=== PATIENT | female | born 1940 | race Two or more races ===

== ENCOUNTER 2020-08-08 06:14 | Day surgery (SDC) | payer MEDICARE, OTHER ==
--- NOTE | 2020-08-04 18:18 | Pre-Procedure Note/Attestation ---
Pre-Procedure Note/Attestation Complete Prior to Procedure Planned Procedure: left Procedure Narrative: Cataract extraction with intraocular lens implant left eye Indications for Procedure Pre-Operative Diagnosis: Nuclear sclerotic cataract left eye Attestation I attest that I discussed the nature of the procedure; its benefits; risks and complications; and alternatives (and the risks and benefits of such alternatives), prior to the procedure, with the patient (or the patient's legal graphic art sales representative). I attest that, if there was a reasonable possibility of needing a blood transfusion, the patient (or the patient's legal graphic art sales representative) was given the [facility] standardized written summary, pursuant to the Rodrigo Mara Blood Safety Act ([place] Health and Safety Code # 1645, as amended). I attest that I re-evaluated the patient just prior to the surgery and that there has been no change in the patient's H&P, except as documented below: Bon Morataya MD Aug 04, 2020 18:18
--- NOTE | 2020-08-04 18:19 | Opthalmology H&P ---
Ophthalmology H&P H&P Chief Complaint: decreased vision in left eye HPI Vision Affects Ability to: read, focus/use eyes together, manage personal affairs HPI Narrative blurry vision Exam Visual Acuity: OD 20/30 OS 20/100 Tension: OD 15 OS 14 Eye Exam: normal OU: external exam, palpebral fissure-width, marginal reflex distance, levator function, corneas, anterior chambers, fundus exam; findings: lens - IOL-OD, NS Cataract OS Assessment/Plan Treatment Plan: cataract extraction w/ lens implant Goals of Treatment: improvement of vision, enhance quality of life Attestation Attestation The risks and benefits of the surgery as well as alternative procedures were explained to the patient in detail. Bon Morataya MD Aug 04, 2020 18:19
[2020-08-05 09:06] LABS: BASOPHILS % (AUTO) 0.7 % (0.0-2.0); EOSINOPHILS % (AUTO) 1.6 % (0.0-3.0); HEMATOCRIT 38.6 % (37.0-47.0); HEMOGLOBIN 12.6 G/DL (12.0-16.0); LYMPHOCYTES % (AUTO) 19.6 % (20.0-45.0); MEAN CORPUSCULAR VOLUME 94 FL (80-99); MONOCYTES % (AUTO) 8.7 % (1.0-10.0); NEUTROPHILS % (AUTO) 69.4 % (45.0-75.0); PLATELET COUNT 274 K/UL (150-450); RED BLOOD COUNT 4.11 M/UL (4.20-5.40); WHITE BLOOD COUNT 7.3 K/UL (4.8-10.8)
[2020-08-05 09:23] LABS: CALCIUM 10.2 MG/DL (8.5-10.1); CREATININE 1.2 MG/DL (0.55-1.30); POTASSIUM 4.4 MMOL/L (3.5-5.1)
--- NOTE | 2020-08-05 12:00 | Pre-op HX & Phy Repo 2 SIG ---
DATE OF ADMISSION: 08/08/2020 PRESURGICAL INTERNAL MEDICINE HISTORY AND PHYSICAL DATE OF EVALUATION: 08/05/2020 REASON FOR EVALUATION: I was asked by Dr. Bon Morataya to see this 80-year-old [place]an-speaking female, who is going for elective surgery on the left eye, August 08, 2020 at [facility]. The patient was evaluated at [facility] outpatient procedure department. PAST MEDICAL HISTORY/REVIEW OF SYSTEMS: Remarkable for hypertension. No history of heart attack. No stroke or seizure. No diabetes. No renal failure. No history of anemia. No thyroid problem. The patient has hyperlipidemia. PAST SURGICAL HISTORY: Cholecystectomy. FAMILY HISTORY: Mother and father , cause unknown. ALLERGIES: Not known. PRESENT MEDICATIONS: Include amlodipine, atenolol, baby aspirin, atorvastatin, and losartan. HABITS: The patient denies history of smoking or alcohol habits. No street drugs. PHYSICAL EXAMINATION: GENERAL: Alert, well-developed and well-nourished, [place]an-speaking female, in her 70s, in no acute distress. VITAL SIGNS: Blood pressure 154/74, temperature 97.4, pulse 72 and regular, respirations 18. O2 saturation 100% on room air. SKIN: No rashes. Dry and warm. LYMPHATICS: Lymph nodes not enlarged. HEENT: Head normocephalic and atraumatic. Eyes, full description per Dr. Bon Morataya. Mouth, clear and moist. Upper and lower dentures full. NECK: Supple. No jugular venous distention. Carotids artery +2. Trachea midline. CHEST: No deformity or asymmetry. LUNGS: Clear to auscultation and percussion. No rales or rhonchi. HEART: Sinus, regular. No ectopy. No murmur. ABDOMEN: Soft, benign. Liver and spleen not enlarged. EXTREMITIES: No edema. No calf tenderness. There are small varicose veins on both feet. GENITOURINARY: No dysuria. CVA, nontender. NEUROLOGIC: No tremor. No nystagmus. LABORATORY AND DIAGNOSTIC DATA: ECG, sinus rhythm, right bundle-branch block. The patient's laboratory work obtained, pending. The patient to be NPO after midnight Saturday for surgery. IMPRESSION: 1. Nuclear sclerotic cataract, left eye. 2. Hypertension, controlled. 3. Right bundle-branch block on EKG. PLAN: Cataract extraction, left eye with intraocular lens implant per Dr. Morataya. CONCLUSION: The patient is a 80-year-old female, who has a history of hypertension, uncomplicated and controlled with medication. The patient's EKG showed a right bundle-branch block, asymptomatic. The patient's condition optimized for surgery. Thank you very much, Dr. Morataya, for privilege to participate in presurgical care of this interesting patient. Adonis Bradley M.D. DR: MARCELA JOB#: [id number] CC:
[2020-08-08] VITALS (9 sets, daily range): BP systolic 120–152; BP diastolic 63–70
[~2020-08-08] VITALS: Ht 162.6 cm; Wt 68.0 kg
[~2020-08-08 06:14] MED LIST: AMLODIPINE BESY10 MG ORAL; ASPIR 8181 MG ORAL; ATORVASTATIN CA20 MG ORAL; HYDROCHLOROTHIA25 MG ORAL; LOSARTAN POTASS50 MG ORAL; PANTOPRAZOLE SO40 MG ORAL
[2020-08-08] MEDS ORDERED: prednisoLONE acetate 1% Opth Susp 1ml ONE (06:15)
[2020-08-08] MEDS ORDERED: NS Irrig 1000ml ONE (06:15)
[2020-08-08] MEDS ORDERED: Sterile Water Irrig 1000ml IRRIG ONE (06:15)
[2020-08-08] MEDS ORDERED: Maxitrol Opth Oint 3.5gm ONE (06:15)
[2020-08-08] MEDS ORDERED: LR 1000ml ONE (06:15)
[2020-08-08] MEDS ORDERED: Proparacaine 0.5% Opth Soln 15ml LEFT EYE ONE (07:00)
[2020-08-08] MEDS ORDERED: Tetracaine 0.5% Opth 4ml Soln LEFT EYE ONE (07:00)
[2020-08-08] MEDS ORDERED: Akten 3.5% 1ml Btl LEFT EYE ONE (07:00)
[2020-08-08] MEDS: Tobramycin Op Soln 0.3% 5ml LEFT EYE SCH ×3 (07:49→08:07)
[2020-08-08] MEDS: Phenylephrine 10% Opth Soln 5ml LEFT EYE SCH ×3 (07:49→08:07)
[2020-08-08] MEDS: Diclofenac Sod 0.1% Op Soln LEFT EYE SCH ×3 (07:49→08:07)
[2020-08-08] MEDS: Tropicamide 1% Opth 15ml Soln LEFT EYE SCH ×3 (07:49→08:08)
[2020-08-08] MEDS ORDERED: fentaNYL 100 mcg/2 mL IV ONE (08:54)
--- NOTE | 2020-08-08 09:06 | Anethesia Preoperative Eval ---
Anesthesia Pre-op PMH/ROS General Date of Evaluation: Aug 08, 2020 Time of Evaluation: 09:01 Anesthesiologist: Freddy ASA Score: ASA 3 Mallampati Score Class I : Soft palate, uvula, fauces, pillars visible Class II: Soft palate, uvula, fauces visible Class III: Soft palate, base of uvula visible Class IV: Only hard plate visible Mallampati Classification: Class II Surgeon: Rafia Diagnosis: L eye cataract Surgical Procedure: Cataract extraction Anesthesia History: none Social History: smoking, drug use Family History: no anesthesia problems Allergies: Coded Allergies: No Known Allergies (Unverified , 08/08/20) Medications: see eMAR Patient NPO?: Yes Past Medical History Cardiovascular: Reports: HTN; Denies: CAD, IA, valve dz, arrhythmia, other Pulmonary: 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 Exam Physician Exam Last Vital Signs Date Time Temp Pulse Resp B/P (MAP) Pulse Ox O2 Delivery O2 Flow Rate FiO2 08/08/20 07:56 97.2 69 18 152/69 98 Room Air Constitutional: NAD Neurologic: CN 2-12 intact Cardiovascular: RRR, no M/R/G Respiratory: CTA Gastrointestinal: S/NT/ND Airway Exam Mallampati Score: Class II MO: limited Neck: stif ROM: limited Teeth: missing Dentures: no upper, no lower Anesthesia Pre-op A/P Labs see mao Studies Pre-op Studies: EKG - S Risk Assessment & Plan Assessment: ASA 3 Plan: MAC Status Change Before Surgery: No Tuan Hayes MD Aug 08, 2020 09:06
[2020-08-08] MEDS ORDERED: LR 1000ml 1,000 ML IVLG SCH (09:15)
[2020-08-08] MEDS ORDERED: fentaNYL 100 mcg/2 mL IV PRN (09:15)
--- NOTE | 2020-08-08 10:28 | Immediate Post-Op Evaluation ---
Immediate Post-Op Evalulation Immediate Post-Op Evalulation Procedure: L eye cataract extraction with IOL Date of Evaluation: Aug 08, 2020 Time of Evaluation: 10:27 IV Fluids: 200 Blood Products: none Estimated Blood Loss: none Urinary Output: none Blood Pressure Systolic: 135 Blood Pressure Diastolic: 76 Pulse Rate: 68 Respiratory Rate: 18 O2 Sat by Pulse Oximetry: 98 Temperature (Fahrenheit): 97.8 Pain Score (1-10): 1 Nausea: No Vomiting: No Complications none Patient Status: awake, patent, none Hydration Status: adequate Tuan Hayes MD Aug 08, 2020 10:28
--- NOTE | 2020-08-08 11:28 | 48 Hour Post Anesthesia Eval ---
Post Anesthesia Evaluation Procedure: L eye cataract extraction with IOL Date of Evaluation: Aug 08, 2020 Time of Evaluation: 11:26 Blood Pressure Systolic: 136 0: 72 Pulse Rate: 68 Respiratory Rate: 11 Temperature (Fahrenheit): 97.6 O2 Sat by Pulse Oximetry: 98 Airway: patent Nausea: No Vomiting: No Pain Intensity: 1 Hydration Status: adequate Cardiopulmonary Status: stable Mental Status/LOC: patient returned to baseline Follow-up Care/Observations: n/a Post-Anesthesia Complications: none Follow-up care needed: ready to discharge Tuan Hayes MD Aug 08, 2020 11:28
[2020-08-08] MEDS ORDERED: EPINEPHrine 1mg/1ml Amp ONE (12:42)
[2020-08-08] MEDS ORDERED: BSS 15ml BTL ONE (12:43)
[2020-08-08] MEDS ORDERED: Povidone-Iodine 5% opth solution ONE (12:43)
[2020-08-08] MEDS ORDERED: BSS 500ml btl ONE (12:43)
[2020-08-08] MEDS ORDERED: Sodium Hyaluronate 10 mg/ml 0.85ml ONE (12:43)
--- NOTE | 2020-08-09 09:20 | Brief Operative Note ---
Immediate Post Operative Note Operative Note Chief Complaint: Blurry vision Pre-op Diagnosis: Nuclear sclerotic cataract left eye Procedure: Cataract extraction with IOL implant left eye Post-op Diagnosis: Pseudo OS Findings: consistent w/pre-op dx studies Surgeon: Bon Morataya MD Anesthesiologist: Tuan Hayes MD Anesthesia: MAC Specimen: none Complications: none Condition: stable Fluids: LR Estimated Blood Loss: none Drains: none Implant(s) used?: Yes - IOL-OS Bon Morataya MD Aug 09, 2020 09:20
--- NOTE | 2020-08-09 09:22 | Operative Note - PDOC ---
Operative Note Operative Note Date of Operation/Procedure: Aug 08, 2020 Chief Complaint: Blurry vision Pre-op Diagnosis: Nuclear sclerotic cataract left eye Procedure: Cataract extraction with IOL implant left eye Post-op Diagnosis: Pseudo OS Operative Findings: consistent w/pre-op dx studies Surgeon: Bon Morataya MD Anesthesiologist: Tuan Hayes MD Anesthesia: MAC Specimen: none Complications: none Condition: stable Fluids: LR Estimated Blood Loss: none Drains: none Implant(s) used?: Yes - IOL-OS Indications for Procedure Nuclear sclerotic cataract left eye Description of Procedure This patient has been complaining visually significant cataract in the left eye with the best corrected visual acuity of 20/100 under moderate glare conditions worse. The patient complains of difficulties with glare in performing activities of daily living and wants to manage personal affairs with comfort and accuracy and see well enough to move with safety at home and outdoors. The risks, benefits and alternatives of the procedure were discussed with the patient in the office prior to scheduling surgery. All questions from the patient were answered after the surgical procedure was explained in detail. The risks of the procedure as explained to the patient include, but are not limited to, pain, infection, bleeding, loss of vision, retinal detachment, need for further surgery, loss of lens nucleus, double vision, etc. Alternative procedures were discussed which include, to do nothing or seek a second opinion. Informed consent for this procedure was obtained from the patient. The patient was referred to a primary care physician for a cardiopulmonary clearance prior to surgery, after proper evaluation was done patient was properly scheduled for outpatient surgery. The patient was brought to the operating room where the anesthesiologist established I.V. lines and cardiac monitoring leads. Mild intravenous sedation was administered. The patient was then prepared with a 5% solution of povidone-iodine to the conjunctival fornix and lashes, and a 5% solution of povidone-iodine to the lids and periorbital skin. The patient was then draped in the usual sterile fashion. A lid speculum was then placed in the operative eye. A keratome blade was then used to create a biplanar incision into the anterior chamber. Viscoelastics was then instilled into the anterior chamber. A 3-mm single pass clear corneal incision was made just anterior to the vascular arcade of the temporal limbus using a keratome. Anterior capsulorrhexis was created. The nucleus was hydrodissected and hydrodelineated, and was freely movable in the capsular bag. The nucleus was then phacoemulsified using a quadrantic [id number] technique. Following the deep groove formation, the lens was split bimanually and the resultant quadrants and cortical material was removed under vacuum burst-mode phacoemulsification. Peripheral cortex was removed with the irrigation and aspiration handpiece. The capsular bag was expanded with viscoelastic. The intraocular lens was then inspected for right power and size and thought to be satisfactory. The implant was inspected under the microscope and found to be free of defects. The implant was inserted into the cartridge system under viscoelastic and placed in the capsular bag. The trailing haptic was positioned with the cartridge system. Viscoelastics was removed from the anterior chamber using the irrigation and aspiration unit. The corneal wound was then tested for leaks and none were found. The lid speculum were then removed. Sponge and needle counts were correct. An eye patch and shield were placed over the operative eye. The patient was taken to the recovery room in stable condition. There were no complications. The patient tolerated the procedure well. The patient was then transferred to the ambulatory surgery unit in stable and satisfactory condition, was given detailed written instructions and asked to follow up in the office the next day. Bon Morataya MD Aug 09, 2020 09:22
== END 2020-08-08 12:10 | disposition home or self-care (01) ==
LOC: SUR 06:14
DX: H25.12 Age-related nuclear cataract, left eye (principal); I10 Essential (primary) hypertension; Z90.49 Acquired absence of other specified parts of digestive tract; Z79.82 Long term (current) use of aspirin; I45.10 Unspecified right bundle-branch block; J44.9 Chronic obstructive pulmonary disease, unspecified; K21.9 Gastro-esophageal reflux disease without esophagitis; E03.9 Hypothyroidism, unspecified; M19.90 Unspecified osteoarthritis, unspecified site; E11.9 Type 2 diabetes mellitus without complications
CPT/HCPCS: 36415; 66984; 80048; 85025; 85610; 85730; 94003; J0171; J1100; J2704; J3010; J3370; J7120; U0002; V2632; 94150